=== PATIENT | male | born 1990 | race Caucasian/White ===

== ENCOUNTER 2019-02-27 13:14 | Emergency (ER) | payer SELFPAY ==
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
== END 2019-02-27 14:52 | disposition home or self-care (01) ==
LOC: ERS 13:14
DX: S60.051A Contusion of right little finger without damage to nail, initial encounter (principal); S61.401A Unspecified open wound of right hand, initial encounter; Y04.0XXA Assault by unarmed brawl or fight, initial encounter
CPT/HCPCS: 29125

== ENCOUNTER 2020-06-18 17:53 | Emergency (ER) | payer SELFPAY ==
[2020-06-18] MEDS ORDERED: Lidocaine 1% w/Epinephrine 1:100K 20 ML VIAL ONE (18:16)
[2020-06-18] MEDS ORDERED: Boostrix 0.5 ML (Tdap) VIAL ONE (18:16)
[2020-06-18 18:26] LABS: #Basophils 0.1 thou/uL (0.0-0.2); #Lymphocytes 1.9 thou/uL (1.20-3.40); #Monocytes 0.8 thou/uL (0.11-0.59); #Neutrophils 5.9 thou/uL (1.40-6.50); %Basophils 0.9 % (0.0-1.0); %Eosinophils 0.5 % (0.0-10.0); %Lymphocytes 21.9 % (21.0-51.0); %Monocytes 9.2 % (0.0-10.0); %Neutrophils 67.5 % (42.0-75.0); Hemoglobin 14.1 g/dL (14.0-18.0); Mean Corpuscular Hemoglobin 30.6 pg (27.0-31.0); Mean Corpuscular Volume 92.5 fL (78.0-98.0); Mean Platelet Volume 8.3 fL (7.4-10.4); Platelet Count 258 thou/uL (130-400); RBC Distribution Width 11.6 % (11.5-14.5); Red Blood Cell (RBC) Count 4.62 mill/uL (4.70-6.10); White Blood Cell (WBC) Count 8.7 thou/uL (4.8-10.8)
[2020-06-18 18:47] LABS: ALT (SGPT) 12 U/L (8-55); AST (SGOT) 19 U/L (5-34); Albumin 4.4 g/dL (3.5-5.0); Alcohol Less than 10 mg/dL (Less than 10); Alkaline Phosphatase 59 U/L (40-110); Anion Gap 16 mmol/L (10-20); BUN (Urea Nitrogen) 15 mg/dL (8.9-20.6); Bilirubin, Total 0.4 mg/dL (0.2-1.2); Calc. Creatinine Clearance 0 mL/min (70-130); Calcium 9.3 mg/dL (7.8-10.44); Carbon Dioxide 25 mmol/L (22-29); Chloride 104 mmol/L (98-107); Estimated GFR-MDRD 82; Globulin 2.5 g/dL (2.4-3.5); Glucose 91 mg/dL (70-105); Potassium 4.5 mmol/L (3.5-5.1); Protein, Total 6.9 g/dL (6.0-8.3); Sodium 140 mmol/L (136-145)
[2020-06-18 18:49] LABS: Acetaminophen Less than 6.0 mcg/mL (10.0-30.0); Alcohol Less than 10 mg/dL (Less than 10); Anion Gap 14 mmol/L (10-20); BUN (Urea Nitrogen) 14 mg/dL (8.9-20.6); Calc. Creatinine Clearance 0 mL/min (70-130); Calcium 9.1 mg/dL (7.8-10.44); Carbon Dioxide 26 mmol/L (22-29); Chloride 103 mmol/L (98-107); Estimated GFR-MDRD 82; Glucose 89 mg/dL (70-105); Potassium 4.2 mmol/L (3.5-5.1); Salicylate Less than 8.0 mg/dL (15.0-30.0); Sodium 139 mmol/L (136-145)
[2020-06-18 19:45] LABS: Bilirubin Negative (Negative); Blood, Urine Negative (Negative); Clarity Clear (Clear); Glucose, Urine (Dipstick) Normal (Negative); Ketone, Urine 20 mg/dL (Negative); Leukocyte Negative Leu/uL (Negative); Nitrite Negative (Negative); Protein, Urine (Dipstick) Negative (Neg-Trace); Specific Gravity, Urine 1.012 (1.002-1.036); Urobilinogen Normal mg/dL (Less than 2); pH, Urine 5.5 (5.0-9.0)
[2020-06-18 19:55] LABS: Amphetamine Detected (NotDetected); Barbiturates Screen Not Detected (NotDetected); Benzodiazepine Screen Not Detected (NotDetected); Cocaine Metabolite Screen Not Detected (NotDetected); Medtox Control Line Valid? VALID (VALID); Medtox Reader # READER 4; Methadone Not Detected (NotDetected); Methamphetamine Detected (NotDetected); Opiate Screen Not Detected (NotDetected); Oxycodone Screen Not Detected (NotDetected); Phencyclidine (PCP) Not Detected (NotDetected); THC/Cannabinoid Screen Detected (NotDetected); Tricyclic Screen Not Detected (NotDetected)
--- NOTE | 2020-06-23 17:53 | EKG ---
Test Reason : Blood Pressure : / mmHG Vent. Rate : 105 BPM Atrial Rate : 105 BPM P-R Int : 132 ms QRS Dur : 090 ms QT Int : 330 ms P-R-T Axes : 070 081 066 degrees QTc Int : 436 ms Sinus tachycardia Possible Left atrial enlargement ST elevation, consider early repolarization, pericarditis, or injury Abnormal ECG Confirmed by GENEVIEVE FOSTER, ALDA ([id number]), editor producer FRANCISCO BROWN ([id number]) on 06/23/2020 5:52:50 PM Referred By: Confirmed By:ALDA VALLEJO MD
== END 2020-06-18 23:00 | disposition home or self-care (01) ==
LOC: ERS 17:53
DX: S51.812A Laceration without foreign body of left forearm, initial encounter (principal); F43.20 Adjustment disorder, unspecified; F19.10 Other psychoactive substance abuse, uncomplicated; F17.220 Nicotine dependence, chewing tobacco, uncomplicated; F41.9 Anxiety disorder, unspecified; F32.9 Major depressive disorder, single episode, unspecified; W26.0XXA Contact with knife, initial encounter
CPT/HCPCS: 12002; 36415; 80053; 80306; 80307; 81003; 85025; 90471; 90715; 93005